=== PATIENT | male | born 1975 | race Two or more races ===

== ENCOUNTER 2019-12-24 06:48 | Inpatient (IN) | payer MEDICAID, OTHER ==
[~2019-12-24] VITALS: Ht 172.7 cm; Wt 84.8 kg
[2019-12-24] MEDS ORDERED: IV NS 0.9% 1,000 ML BAG IV ONE ×2 (07:00→10:00)
[2019-12-24] MEDS ORDERED: LORAZEPAM INJ 2 MG/ML VIAL IVP ONE (07:00)
--- NOTE | 2019-12-24 07:00 | NUR ---
gricel Mancera from [facility] for c/o anxiety. pt reported he usually drinks alcohol who's been trying not to drink. does not remember when was the last time he drank some alcohol. pt was transferred to bed 7 and was placed on a monitor .
--- NOTE | 2019-12-24 07:02 | NUR ---
at bed side for eval
[2019-12-24] MEDS ORDERED: LORAZEPAM INJ 2 MG/ML VIAL ONE ×2 (07:15→14:11)
[2019-12-24 08:01] LABS: BASOPHILS # (AUTO) 0.1 /CMM (0.0-0.2); BASOPHILS % (AUTO) 0.5 % (0.0-2.0); HEMATOCRIT 40 % (39-51); LYMPHOCYTES # (AUTO) 1.2 /CMM (0.8-4.8); LYMPHOCYTES % (AUTO) 11.7 % (20.0-44.0); MEAN CORPUSCULAR HGB CONC 33 g/dl (31.0-36.0); MEAN CORPUSCULAR VOLUME 90 fL (80-96); MONOCYTES # (AUTO) 0.2 /CMM (0.1-1.30); MONOCYTES % (AUTO) 2.2 % (2.0-12.0); NEUTROPHILS # (AUTO) 8.7 /CMM (1.8-8.9); NEUTROPHILS % (AUTO) 85.6 % (43.0-81.0); PLATELET COUNT (AUTO) 310 /CMM (150-450); RED BLOOD CELL COUNT(AUTO) 4.41 MIL/uL (4.5-6.0); WHITE BLOOD COUNT (AUTO) 10.2 K/uL (4.3-11.0)
[2019-12-24 08:18] LABS: ALANINE AMINOTRANSFERASE 25 U/L (12-78); ALBUMIN 4.3 g/dL (3.4-5.0); ALCOHOL, BLOOD 281 mg/dL (0-0); ALKALINE PHOSPHATASE 60 U/L (46-116); ASPARTATE AMINOTRANSFERASE 41 U/L (15-37); BILIRUBIN,DIRECT 0.2 mg/dL (0.0-0.2); BILIRUBIN,TOTAL 0.5 mg/dL (0.2-1.0); CALCIUM, SERUM 8.9 mg/dL (8.5-10.1); CARBON DIOXIDE 19 mmol/L (21-32); CHLORIDE 101 mmol/L (98-107); CREATININE 1.3 mg/dL (0.6-1.3); GLUCOSE 78 mg/dL (74-106); POTASSIUM 4.1 mmol/L (3.5-5.1); SALICYLATE 3.9 mg/dL (2.8-20.0); SODIUM SERUM 142 mmol/L (136-145); TOTAL PROTEIN, SERUM 7.9 g/dL (6.4-8.2); UREA NITROGEN, BLOOD 16 mg/dL (7-18)
[2019-12-24 08:20] LABS: ACETAMINOPHEN 0 ug/ml (10-30)
--- NOTE | 2019-12-24 09:00 | NUR ---
PT ASLEEP, EASILY AWAKEN BY VERBAL STIMULI BUT WILL GO BACK TO SLEEP. DENIES CP, SOB, DIZZINESS, N/V AT THIS TIME . WILL CONT TO MONITOR.
[2019-12-24] MEDS ORDERED: PIPERACILLIN /TAZOBACTAM 3.375 G in IV D5W 50 ML IV ONE (10:00)
[2019-12-24] MEDS ORDERED: GABA300C PO (10:03)
[2019-12-24] MEDS ORDERED: PANT40TA49 PO (10:03)
[2019-12-24] MEDS ORDERED: FOLI0.8T PO (10:03)
[2019-12-24] MEDS ORDERED: SUCR1TAB PO (10:03)
[2019-12-24] MEDS ORDERED: MIRT45TA83 PO (10:03)
[2019-12-24] MEDS ORDERED: FERR325T29 PO (10:03)
[2019-12-24] MEDS ORDERED: THIA100T68 PO (10:03)
--- NOTE | 2019-12-24 10:06 | NUR ---
additional 1100 ml NS ordered to complete fluid resuscitation for sepsis
--- NOTE | 2019-12-24 10:08 | NUR ---
PT TO CT VIA [facility].
--- NOTE | 2019-12-24 10:09 | NUR ---
ORDERED ZOSYN INGE FROM PHARMACY.
[2019-12-24] MEDS ORDERED: IV NS 0.9% 500 ML BAG IV ONE (10:30)
[2019-12-24 11:03] LABS: ABG BASE EXCESS -8.8 mmol/L; ABG OXYGEN SATURATION 97.6 % (92.0-98.5); ABG PCO2 23.3 mmHg (35.0-45.0); ABG PH 7.397 (7.350-7.450); ABG PO2 106.2 mmHg (75.0-100.0); AaDO2 15.6 mmHg; COHb 0.3 % (0.5-1.5); MetHb 0.3 % (0.0-1.5); SITE, ABG Left Brachial; VENT MODE, BG ROOM AIR
--- NOTE | 2019-12-24 12:00 | NUR ---
ASSUMED PT CARE, PT IN BED SLEEPING NOT IN ANY DISTRESS. VSS
--- NOTE | 2019-12-24 12:59 | NUR ---
CALLED [facility]. IP LITIGATION ASSOCIATE WAS PAGED
--- NOTE | 2019-12-24 13:16 | NUR ---
COVID SWAB DONE AND SENT TO LAB
--- NOTE | 2019-12-24 13:25 | NUR ---
CALLED NURSING SUP FOR TELE BED.
[2019-12-24] MEDS ORDERED: Z GUARD REMEDY 2 OZ OINT TP PRN (14:00)
[2019-12-24] MEDS ORDERED: MAG HYDROX/AL HYDROX/SIMETH 30 ML UDC PO PRN (14:00)
[2019-12-24] MEDS ORDERED: ONDANSETRON HCL/PF 4 MG/2 ML VIAL IVP PRN (14:00)
[2019-12-24] MEDS ORDERED: HYDROCODONE/APAP 5/325MG TABLET PO PRN (14:00)
[2019-12-24] MEDS ORDERED: ZOLPIDEM TARTRATE 5 MG TABLET PO PRN (14:00)
[2019-12-24] MEDS ORDERED: ACETAMINOPHEN 325 MG TABLET PO PRN (14:00)
--- NOTE | 2019-12-24 14:14 | NUR ---
PT AWAKE PROVIDED WITH FOOD AND WATER. PT IS NOTED TREMORS AND TREMBLING. VERBALIZED THAT HE IS FEELING THE WITHDRAWAL AGAIN. MD MADE AWARE, VERBAL ORDER RECEIVED TO GIVE ATIVAN 1MG IV X 1 DOSE. NOTED AND CARRIED OUT
[2019-12-24 14:27] LABS: APPEARANCE,URINE CLEAR (CLEAR); BILIRUBIN,URINE NEGATIVE (NEGATIVE); BLOOD, URINE NEGATIVE Ery/uL (NEGATIVE); COLOR,URINE YELLOW (YELLOW); KETONES,URINE 40 (NEGATIVE); LEUKOCYTE ESTERASE ,URINE NEGATIVE (NEGATIVE); NITRITE, URINE NEGATIVE (NEGATIVE); PH,URINE 5.5 (5.0-8.0); PROTEIN,URINE NEGATIVE (NEGATIVE); UGLUCOSE NEGATIVE (NEGATIVE); UROBILINOGEN,URINE 0.2 EU/dL (0.2)
[2019-12-24 14:28] LABS: BACTERIA,URINE None seen /HPF (None Seen); MUCUS,URINE Few /LPF (None Seen); RBC,URINE 0-2 /HPF (0-2); SQUAMOUS EPITHELIAL CELL,UR Rare /HPF (None Seen); URINE AMORPHOUS URATE Few /HPF (None Seen); WBC,URINE 0-2 /HPF (0-3)
[2019-12-24] MEDS ORDERED: LORAZEPAM INJ 2 MG/ML VIAL IV ONE ×2 (14:30)
--- NOTE | 2019-12-24 14:49 | NUR ---
REPORT GIVEN TO SIMON VILLATORO FOR BEVERLY.
--- NOTE | 2019-12-24 14:52 | NUR ---
COVID TEST: NEGATIVE
--- NOTE | 2019-12-24 15:20 | NUR ---
pt transported to unit on [facility] with emt and rn w/ acls protocol. nad noted. pt ambulated fro [place] to bed on steady gait
--- NOTE | 2019-12-24 15:30 | NUR ---
RN ADMITTING RECEIVED PATIENT FROM ER, VIA GURNEY, PATIENT IS AMBULATORY, A/OX4, ON ROOM AIR, DENIES SOB OR RESP DISTRESS, DENIES PAIN OR DISCOMFORT, SPO2 IS 99%, IV LINE NOTED ON R HAND, G 22, INTACT AND PATENT, SKIN IS INTACT, BRUISING NOTED ON HEAD AND FACE, PICTURES TAKEN AND PLACED IN CHART. REGULAR DIET NOTED. SAFETY MEASURES IN PLACE, CALL LIGHT IN REACH, BED IN LOWEST POSITION, LOCKED ,WILL CONT TO MONITOR
[2019-12-24] MEDS: IV NS 0.9% 1,000 ML IV PRN ×2 (15:51→23:49)
--- NOTE | 2019-12-24 16:00 | NUR ---
IV HYDRATION STARTED, TOLERATING WELL
[2019-12-24 16:30] VITALS: BP 99/43
[2019-12-24] MEDS: CHLORDIAZEPOXIDE HCL 25 MG CAPSULE PO SCH ×2 (18:10→23:45)
--- NOTE | 2019-12-24 19:25 | NUR ---
RN OPENING NOTES: RECEIVED PT A/OX4 IN BED RESTING COMFORTABLY. PATIENT IN NO S/SX OF ACUTE DISTRESS AT THIS TIME. NO SOB NOTED. PATIENT'S BREATHING IS EVEN AND UNLABORED. PATIENT IS ON RA; TOLERATING WELL; SATURATING @97% AT TIME OF RECEIVED. PATIENT ON MS STATUS. NOTED IV SITE ON R HAND # 20 ;PATENT, INTACT AND FLUSHING WELLNO S/S OF INFECTION OR INFILTRATION. WITH IV FLUID RUNNING ORDERED. PT AMBULATORY, WITH URINAL AT BEDSIDE. SAFETY MEASURES HAVE BEEN PROVIDED AND IMPLEMENTED. PATIENT BED ALARM IS ON. HEAD OF BED ELEVATED. BED IS LOCKED, IN LOWEST POSITION AND SIDE RAILS UP. CALL LIGHT WITHIN REACH OF THE PATIENT. ISOLATION PRECAUTIONS IN PLACE. WILL CONTINUE TO MONITOR AND REASSESS FOR ANY CHANGES.
--- NOTE | 2019-12-24 19:46 | NUR ---
RN CLOSING NOTES REMAINS IN BED, TOLERATING HYDRATION WELL, ATE DINNER, MEDS ARE GIVEN, DENIES PAIN OR DISCOMFORT, SPO2 IS 100%, NO SOB, OR DISTRESS NOTED, SAFETY MEASURES IN PLACE, BED IS LOW, LOCKED, URINAL AT BED SITE, WILL ENDORSE TO PM SHIFT RN FOR BEVERLY
[2019-12-24 20:00] VITALS: BP 97/46
[2019-12-24] MEDS: LORAZEPAM INJ 2 MG/ML VIAL IV PRN (20:06)
--- NOTE | 2019-12-24 22:00 | NUR ---
RN NOTES NO NOTED CHANGES TO PATIENT CONDITION/STATUS. LEAD GENERATION REPRESENTATIVE MADE AWARE. WILL CONTINUE TO MONITOR AND REASSESS FOR ANY CHANGES THROUGHOUT THE SHIFT.
[2019-12-24] MEDS: THIAMINE HCL 100 MG TABLET PO SCH (22:27)
[2019-12-24] MEDS: FOLIC ACID 1 MG TABLET PO SCH (22:27)
--- NOTE | 2019-12-25 | NUR ---
RN NOTES NO NOTED CHANGES TO PATIENT CONDITION/STATUS. CLINICAL DOCUMENTATION DEVELOPER MADE AWARE. WILL CONTINUE TO MONITOR AND REASSESS FOR ANY CHANGES THROUGHOUT THE SHIFT.
[2019-12-25 04:00] VITALS: BP 92/44
--- NOTE | 2019-12-25 04:00 | NUR ---
RN NOTES NO NOTED CHANGES TO PATIENT CONDITION/STATUS. ADMINISTRATIVE SPECIALIST MADE AWARE. WILL CONTINUE TO MONITOR AND REASSESS FOR ANY CHANGES THROUGHOUT THE SHIFT.
[2019-12-25] MEDS ORDERED: CHLORDIAZEPOXIDE HCL 25 MG CAPSULE ONE (05:49)
--- NOTE | 2019-12-25 06:53 | NUR ---
RN CLOSING NOTES PATIENT REMAINS IN ROOM IN NO SIGNS OF RESPIRATORY DISTRESS. PATIENT SATURATING 98% OF 02. VITAL SIGNS WNL. IV LINE MAINTAINED, INTACT, PATENT AND FLUSHING, NO SITE REDNESS OR INFILTRATION. SAFETY PRECAUTIONS IN PLACE AND COMFORT MEASURES RENDERED. BED IN LOWEST POSITION, CALL LIGHT WITHIN REACH, BREAKS ON, SIDE RAILS UP. ALL NEEDS ATTENDED, MEDICATIONS GIVEN SCHEDULED AND ORDERED ; SHIFT ASSESSMENT/BEDBATH/SKIN CARE DONE. PATIENT KEPT CLEAN AND DRY. WILL ENDORSE TO INCOMING SHIFT FOR BEVERLY WITH ALL PERTINENT INFO REGARDING PATIENT STATUS.
[2019-12-25 07:09] LABS: BASOPHILS % (AUTO) 0.5 % (0.0-2.0); EOSINOPHILS % (AUTO) 0.7 % (0.0-6.0); HEMATOCRIT 31 % (39-51); HEMOGLOBIN 10.3 g/dL (13.5-17.5); LYMPHOCYTES # (AUTO) 1.6 /CMM (0.8-4.8); LYMPHOCYTES % (AUTO) 22.4 % (20.0-44.0); MEAN CORPUSCULAR HGB CONC 34 g/dl (31.0-36.0); MEAN CORPUSCULAR VOLUME 89 fL (80-96); MONOCYTES # (AUTO) 0.6 /CMM (0.1-1.30); MONOCYTES % (AUTO) 8.6 % (2.0-12.0); NEUTROPHILS % (AUTO) 67.8 % (43.0-81.0); PLATELET COUNT (AUTO) 224 /CMM (150-450); RED BLOOD CELL COUNT(AUTO) 3.43 MIL/uL (4.5-6.0); WHITE BLOOD COUNT (AUTO) 7.3 K/uL (4.3-11.0)
[2019-12-25 07:15] LABS: CALCIUM, SERUM 8.1 mg/dL (8.5-10.1); CREATININE 0.8 mg/dL (0.6-1.3); PHOSPHORUS 2.6 mg/dL (2.5-4.9); POTASSIUM 3.8 mmol/L (3.5-5.1)
--- NOTE | 2019-12-25 07:40 | NUR ---
REPORT RECEIVED FROM SIMON DURAN
[2019-12-25] MEDS: IV NS 0.9% 1,000 ML IV PRN (08:42)
[2019-12-25] MEDS: FOLIC ACID 1 MG TABLET PO SCH (08:59)
[2019-12-25] MEDS: THIAMINE HCL 100 MG TABLET PO SCH (08:59)
[2019-12-25] MEDS: LORAZEPAM INJ 2 MG/ML VIAL IV PRN (08:59)
[2019-12-25] MEDS ORDERED: CHLO25CA22 PO (10:38)
[2019-12-25] MEDS: CHLORDIAZEPOXIDE HCL 25 MG CAPSULE PO SCH (12:00)
--- NOTE | 2019-12-25 13:00 | NUR ---
PATIENT DISCHARGED. HE RECEIVED AN RX FOR LIBRIUM 25 MG PO Q 8 HR FOR 3 DAYS. EDUCATED PATIENT TO FOLLOW UP WITH PSYCHIATRIST AND TO LOOK INTO TREATMENT FOR ALCOHOL ABUSE. PATIENT VERBALIZED UNDERSTANDING. VENEER JOINTER OPERATOR PROVIDED A VOUCHER FOR BUS TRANSPORTATION FOR PATIENT. PATIENT STATED HE LIVES IN [place] BY HIMSELF IN THE APARTMENT AND GOING TO TAKE A BUS.
== END 2019-12-25 12:51 | disposition home or self-care (01) | DRG 775 ==
LOC: ER 06:50 → TELE1 14:59 → MEDSG1 23:51
PROVIDERS: ADMIT Nurse Practitioner Acute Care; ATTEND Nurse Practitioner Acute Care
DX: F10.239 Alcohol dependence with withdrawal, unspecified (principal); E87.2 Acidosis; Y90.8 Blood alcohol level of 240 mg/100 ml or more; G92 Toxic encephalopathy; F41.9 Anxiety disorder, unspecified; Z59.0 Homelessness; F12.90 Cannabis use, unspecified, uncomplicated
CPT/HCPCS: 36415; 36600; 71045-TC; 80048-TC; 80061-TC; 80076-TC; 80305; 81000-TC; 82010-TC; 82803-TC; 83605-TC; 83735-TC; 84100-TC; 84484-TC; 85025-TC; 87040-TC; 87081-TC; 87086-TC; C9803-CS; G0378; G0480; J2060; J2543; J7030; J7060